=== PATIENT | female | born 1955 | race Caucasian/White ===

== ENCOUNTER 2018-06-28 09:50 | Observation (INO) ==
[2018-06-28] MEDS ORDERED: ONDANSETRON HCL/PF 2 MG/ML VIAL IV ONE ×2 (10:15→11:22)
--- NOTE | 2018-06-28 10:22 | ERNOTE ---
Trauma/Assault HPI - Narrative Date of Service: 06/28/18 - General Stated Complaint: FALL Time Seen by Provider: 06/28/18 10:09 Source: patient, family Exam Limitations: clinical condition - Immun/Allergies/Home Medications Immunizations: IMMUNIZATION HX Immunizations Up to Date No History of Influenza Vaccine No Hx Pneumococcal Vaccination No Allergies/Adverse Reactions: Allergies No Known Allergies Allergy (Unverified 06/24/18 13:10) Home Medications: HOME MEDICATIONS LORazepam [Ativan] 0.5 mg PO BID PRN 06/28/18 [Last Taken Unknown] Levothyroxine Sodium [Levoxyl] 175 mcg PO DAILY 06/28/18 [Last Taken Unknown] RX: Atorvastatin Calcium 10 mg PO DAILY 06/28/18 [Last Taken Unknown] RX: Metoprolol Succinate 50 mg PO DAILY 06/28/18 [Last Taken Unknown] Zolpidem Tartrate [Ambien] 10 mg PO HS PRN 06/28/18 [Last Taken Unknown] - History of Present Illness Narrative: This is a 63-year-old female. Due to the patient's condition history is limited. Nursing staff did speak with the patient's family. Apparently the patient was seen in the ER 3 days ago after falling out of her bed. She sustained a gamekeeper's thumb on the right. She was scheduled to go see orthopedist today. She apparently sustained a ground-level fall from standing. Struck the back of her head. She has been confused since then. The patient's speech is very abnormal. It is my clinical impression that I cannot use the things that the patient is saying to me now to account for the patient's history and physical examination. Review of Systems - Review of Systems Constitutional: Present: other - Patient says she feels completely fine EYE: Present: other - Patient denies any eye problems ENT: Present: other - Patient denies any facial discomfort swelling difficulty swallowing Respiratory: Present: other - Patient denies any shortness of breath or chest pain Cardiology: Present: no symptoms reported. Absent: chest pain Gastrointestinal/Abdominal: Present: nausea, other. Absent: vomiting, diarrhea Genitourinary: Absent: frequency - Patient is having severe nausea but no vomiting, pain, dysuria Musculoskeletal: Absent: no symptoms reported, See HPI, back pain, muscle pain, muscle stiffness, neck pain Skin: Present: no symptoms reported Neurological: Present: no symptoms reported, other - Patient says that she feels like she is thinking a little slower but denies any other problems Endocrine: Present: no symptoms reported Hematologic/Lymphatic: Present: no symptoms reported Psych: Present: no symptoms reported All Other Systems: All systems neg except as marked Medical History (Last Reviewed 06/28/18 @ 12:01 by Nisa Krishnan RN) High blood pressure High cholesterol History of hypothyroidism Surgical History: Surgical History (Last Reviewed 06/28/18 @ 12:01 by Nisa Krishnan RN) Hx of appendectomy Hx of cholecystectomy Hx of hysterectomy Family History: Family History (Last Reviewed 06/28/18 @ 12:01 by Nisa Krishnan RN) Father Colon cancer A-fib Uncle Colon cancer Grandmother [place], acute, non ST segment elevation Social History: Preferred Language Sierra Leonean Do you have any baptist or No cultural preference? Smoking Status Never smoker Alcohol Use none Drug Use none No Social History Section defined Physical Exam - Physical Exam General Appearance: Present: other - Patient is awake alert. Her speech is slow. She is holding her arms out rigidly in front of her. Head Exam: Present: other - Patient has matting of the occipital scalp with blood. There is a 1 cm laceration in the midline of the occipital scalp Eye Exam: Normal inspection: bilateral, PERRL: bilateral, EOMI: bilateral - As best I can determine. Patient does not follow all commands Ears, Nose, Throat: Present: normal ENT inspection, normal pharynx, other Neck: Present: normal inspection, nontender, other - Patient is altered. Will be placed in a cervical collar Respiratory: Present: no respiratory distress, normal breath sounds, lungs clear Cardiovascular/Chest: Present: regular rate, rhythm, no murmur, normal peripheral pulses Gastrointestinal/Abdominal: Present: normal bowel sounds, nontender, nondistended, soft Back Exam: Present: normal inspection, normal range of motion, no CVA tenderness Extremity Exam: Present: normal inspection, other - Patient does have some pain and swelling in her right. Neurological Exam: Present: other - Patient is confused. She is sitting up in bed with her arms out in front of her. She does not know where she has. She does not of the date. She moves all extremities. Her speech is slurred. She has non-fatigable horizontal nystagmus. She is noted to move all extremities Skin Exam: Present: normal color, warm/dry, other - Laceration as described Lymphatic Exam: Present: no adenopathy Detailed Trauma Exam Best Eye Response ([place]): (4) open spontaneously Best Verbal Response ([place]): (4) confused conversation Best Motor Response ([place]): (6) obeys commands [place] Total: 14 Progress - Results and Orders Patient's Lab Results:: I have reviewed the patient's lab results. - Vital Signs Patient's Vital Signs:: I have reviewed the patient's vital signs. Vital Signs: Vital Signs 06/28/18 09:50 Temperature 36.7 C Pulse Rate 75 Respiratory Rate 14 Blood Pressure 147/92 H O2 Sat by Pulse Oximetry 100 - CT/Ultrasound CT/Ultrasound Narrative: CT of the head demonstrates no acute intracranial abnormalities. CT of the cervical spine shows a subtle lucency near the spinous process of C5 felt to be due to a artifact however clinical correlation is advised. Patient has no significant tenderness in this area. - Progress/Reassessment Chief Complaint: Fall Progress:: Unchanged Progress Note-Subjective: 06/28/18 11:17 The patient is still confused. She has a family friend with her. The patient is able to tell me now that she took Ambien last night. She has been taking Ambien every night. The friend says that the patient's boyfriend's ex- mentioned to the friend that she felt the patient might have an issue with Ambien abuse. Regardless, the patient is not going to be able to go home until she is neurol ogically and mentally back to normal. She will need to be placed in observation overnight. I am going very gentle with fluids. Will speak with the hospitalist. Plan - Plan Plan: The patient's symptoms are consistent with that of Ambien impairment. She has not given us a urine sample yet. She has no leukocytosis, fever, or complaints of symptoms, so I do not believe that urinary tract infection/sepsis is likely. I do not feel that the patient needs to have a catheterized specimen performed here in the ER. I am going to admit her to Dr. Moctezuma with plans to observe throughout the day. If she gets back to normal mental state baseline she may be able to go home. The patient's family friend who is in the room says that the patient is acting extremely different than normal. 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 This is not normal for her. The friend who is in the room says that another friend notified this friend, the friend notes in the room, that she felt the patient might have a problem with Ambien abuse. Regardless it is noon or nearing noon and the patient is still clinically impaired from what I have to believe is Ambien toxicity. She will need to be kept. Could this be a concussion? Certainly possible, but again would need to be admitted to the hospital for evaluation. If the patient does not clear mentally within the expected timeframe of approximately 12 hours (or longer for ER form) further consultation or transfer for neurological evaluation may be indicated. I am still awaiting the official report for the cervical spine. I have seen the CT for the cervical spine and discussed with the admitting physician. He agrees with not doing a cath urine at this time. Departure Clinical Impression: Ambien accidental overdose - Departure Disposition: Still a patient Condition: Fair Critical Care Time - Critical Care Critical Time Spent:: No
[2018-06-28 10:50] LABS: Hematocrit 41.1 % (37.0-47.0); Hemoglobin 13.6 gm/dL (12.5-16.0); Mean Cell Volume 94.9 fl (78-100); Mean Corpuscular Hemoglobin 31.4 pg (27-31); Mean Corpuscular Hgb Conc 33.1 g/dl (32-36); Mean Platelet Volume 9.6 fl (8-12.5); Neutrophil # 5.5 K/mm3 (1.3-6.0); Neutrophil % 65.5 % (42-75.0); Platelet Count 222 K/mm3 (150-450); Red Blood Count 4.33 M/mm3 (4.2-5.4); White Blood Count 8.4 K/mm3 (4.0-10.5)
[2018-06-28 11:00] LABS: Albumin * 4.5 gm/dl (3.4-5.0); Anion Gap 15.8 mmol/L (6.8-13.8); BUN/Creatinine Ratio 9.2 (9.0-21.6); Bilirubin, Total 0.3 mg/dL (0.0-1.1); Ca. Corrected For Albumin 9.1 mg/dL (8.4-10.2); Calcium * 9.8 mg/dL (7.9-10.9); Carbon Dioxide 27.3 mmol/L (24-32.6); Potassium 3.1 mmol/L (3.4-4.6); Total Protein 8.3 gm/dL (6.2-8.2)
[2018-06-28] MEDS ORDERED: TETANUS AND DIPHTHERIA TOXOID 0.5 ML SYRG IM ONE (11:57)
[2018-06-28] MEDS ORDERED: DIPHTH,PERTUSS(ACELL),TET VAC 0.5 ML VIAL IM ONE (12:17)
[2018-06-28 13:53] LABS: Urine Bilirubin Negative (NEGATIVE); Urine Blood Negative /ul (NEGATIVE); Urine Ketone Negative (NEGATIVE); Urine Nitrite Negative (NEGATIVE); Urine Protein Negative (NEGATIVE); Urine Urobilinogen Normal (NORMAL); Urine pH 6.5 pH (5.0-7.0)
[2018-06-28 14:01] LABS: Urine Appearance Slightly Cloudy (CLEAR); Urine Bacteria TRACE; Urine Color Yellow; Urine RBC None Seen /hpf (0-5); Urine WBC None Seen /hpf (0-5)
[2018-06-28 14:07] LABS: Cocaine Ur Negative (NEGATIVE); Urine Opiates Negative (NEGATIVE); Urine PCP Negative (NEGATIVE); Urine THC Negative (NEGATIVE)
[2018-06-28 14:08] LABS: Urine Barbiturate Positive (NEGATIVE); Urine Benzodiazepines Positive (NEGATIVE)
[2018-06-28] MEDS: ONDANSETRON HCL/PF 2 MG/ML VIAL IV PRN ×2 (15:04→19:09)
[2018-06-28] MEDS: ACETAMINOPHEN 325 MG TABLET PO PRN ×2 (15:05→21:09)
--- NOTE | 2018-06-28 16:13 | HP ---
Chief Complaint - Chief Complaint Date of Service: 06/28/18 Time of Service: 16:13 Chief Complaint: Altered, intoxicated History of Present Illness: 63-year-old female presented to the ER this morning after falling out of her bed. She had a similar incident earlier in the week where she fell out of the bed and broke her right thumb. Today she presented to the ER intoxicated and altered. CT scan of her head in the ER was negative for a bleed. She admitted to taking ambien to help her sleep. Her tox screen was also positive for benzodiazepine and barbiturates. She was A&O x2, slurring her words. She was placed under observation to be monitored until the medications were out of her system. She came to the floor in hard c-collar due to possible cervical spinal fracture at C5. This could not be ruled out while intoxicated. Her vitals were stable and her labs were in an appropriate range aside from a mildly low potassium. Her vitals were also stable. Medical History (Last Reviewed 06/28/18 @ 12:01 by Nisa Krishnan RN) High blood pressure High cholesterol History of hypothyroidism Surgical History: Surgical History (Last Reviewed 06/28/18 @ 12:01 by Nisa Krishnan RN) Hx of appendectomy Hx of cholecystectomy Hx of hysterectomy Family History: Family History (Last Reviewed 06/28/18 @ 12:01 by Nisa Krishnan RN) Father Colon cancer A-fib Uncle Colon cancer Grandmother [place], acute, non ST segment elevation Social History: Patient Lives/Resources Home Utilized Preferred Language Bengali Do you have any zoroastrianism or No cultural preference? Smoking Status Unknown if ever smoked Have you smoked in the past 12 No months Alcohol Use none Drug Use none No Social History Section defined Review Of Systems (GEN) - Review of Systems Additional Comments: unable to obtain at time of admission due to being altered Immunizations: IMMUNIZATION HX Immunizations Up to Date No History of Influenza Vaccine No Hx Pneumococcal Vaccination No Allergies/Adverse Reactions: Allergies Allergy/AdvReac Type Severity Reaction Status Date / Time No Known Allergies Allergy Unverified 06/24/18 13:10 Home Medications: HOME MEDICATIONS Atorvastatin Calcium 10 mg PO DAILY 06/28/18 [Last Taken Unknown] LORazepam [Ativan] 0.5 mg PO BID PRN 06/28/18 [Last Taken Unknown] Levothyroxine Sodium [Levoxyl] 175 mcg PO DAILY 06/28/18 [Last Taken Unknown] Metoprolol Succinate 50 mg PO DAILY 06/28/18 [Last Taken Unknown] Zolpidem Tartrate [Ambien] 10 mg PO HS PRN 06/28/18 [Last Taken Unknown] Exam - Exam Vital Signs: Vital Signs - Last Taken Temp 36.0 C 06/28/18 12:35 Pulse 84 06/28/18 13:40 Resp 16 06/28/18 13:40 BP 137/78 06/28/18 13:40 Pulse Ox 98 06/28/18 13:40 Constitutional: Present: Elderly, Thin and frail Eye Exam: bilateral eye: abnormal pupil - dialated Neck: Present: other - c collar in place Respiratory: Present: lungs clear, normal breath sounds Cardiovascular/Chest: Present: regular rate, rhythm. Absent: no edema, no murmur Skin Exam: Present: normal color, warm/dry Eye contact: Absent: normal speech Thoughts: Present: incoherent Diagnostic Studies: Abnormal Lab Results 06/28/18 06/28/18 06/28/18 Range/Units 10:40 10:40 13:25 MCH 31.4 H (27-31) pg Potassium 3.1 L (3.4-4.6) mmol/L Anion Gap 15.8 H (6.8-13.8) mmol/L Est GFR (Non-Af Amer) 54 L (60-130) mL/min Random Glucose 118 H (70-110) mg/dL Total Protein 8.3 H (6.2-8.2) gm/dL Barbiturate Screen Positive H (NEGATIVE) U Benzodiazepines Scrn Positive H (NEGATIVE) Laboratory Results WBC 8.4 K/mm3 (4.0-10.5) 06/28/18 10:40 RBC 4.33 M/mm3 (4.2-5.4) 06/28/18 10:40 Hgb 13.6 gm/dL (12.5-16.0) 06/28/18 10:40 Hct 41.1 % (37.0-47.0) 06/28/18 10:40 MCV 94.9 fl (78-100) 06/28/18 10:40 MCH 31.4 pg (27-31) H 06/28/18 10:40 MCHC 33.1 g/dl (32-36) 06/28/18 10:40 RDW 13.0 % (11.5-14.0) 06/28/18 10:40 Plt Count 222 K/mm3 (150-450) 06/28/18 10:40 MPV 9.6 fl (8-12.5) 06/28/18 10:40 Immature Gran % (Auto) 0.20 % (0.001-0.429) 06/28/18 10:40 Immature Gran # (Auto) 0.02 K/mm3 (0.000-0.0310) 06/28/18 10:40 Neutrophils % 65.5 % (42-75.0) 06/28/18 10:40 Lymphocytes % 26.7 % (20-51) 06/28/18 10:40 Monocytes % 5.7 % (0.0-9) 06/28/18 10:40 Eosinophils % 1.3 % (0.0-3.0) 06/28/18 10:40 Basophils % 0.6 % (0.0-1.0) 06/28/18 10:40 Nucleated RBC % 0.0 k/mm3 (0-1) 06/28/18 10:40 Neutrophils # 5.5 K/mm3 (1.3-6.0) 06/28/18 10:40 Lymphocytes # 2.25 k/mm3 (1.5-3.5) 06/28/18 10:40 Monocytes # 0.5 k/mm3 (0.0-1.0) 06/28/18 10:40 Eosinophils # 0.1 k/mm3 (0.0-0.7) 06/28/18 10:40 Absolute Basophils 0.1 k/mm3 (0.0-0.1) 06/28/18 10:40 Sodium 139 mmol/L (132-142) 06/28/18 10:40 Plasma Sodium 139 mmol/L (130-142) 06/28/18 10:40 Potassium 3.1 mmol/L (3.4-4.6) L 06/28/18 10:40 Chloride 99 mmol/L (97-106) 06/28/18 10:40 Carbon Dioxide 27.3 mmol/L (24-32.6) 06/28/18 10:40 Anion Gap 15.8 mmol/L (6.8-13.8) H 06/28/18 10:40 BUN 10 mg/dL (3-23) 06/28/18 10:40 Creatinine 1.09 mg/dL (0.4-1.4) 06/28/18 10:40 Est GFR (Non-Af Amer) 54 mL/min (60-130) L 06/28/18 10:40 BUN/Creatinine Ratio 9.2 (9.0-21.6) 06/28/18 10:40 Random Glucose 118 mg/dL (70-110) H 06/28/18 10:40 Calcium 9.8 mg/dL (7.9-10.9) 06/28/18 10:40 Calcium Adj for Albumin 9.1 mg/dL (8.4-10.2) 06/28/18 10:40 Total Bilirubin 0.3 mg/dL (0.0-1.1) 06/28/18 10:40 AST 21 U/L (0-48) 06/28/18 10:40 ALT 22 U/L (19-67) 06/28/18 10:40 Alkaline Phosphatase 102 U/L (50-170) 06/28/18 10:40 Total Protein 8.3 gm/dL (6.2-8.2) H 06/28/18 10:40 Albumin 4.5 gm/dl (3.4-5.0) 06/28/18 10:40 Urine Color Yellow 06/28/18 13:25 Urine Appearance Slightly cloudy (CLEAR) 06/28/18 13:25 Urine pH 6.5 pH (5.0-7.0) 06/28/18 13:25 Ur Specific [place] 1.020 SP.GR. (1.005-1.010) 06/28/18 13:25 Urine Protein Negative mg/dL (NEGATIVE) 06/28/18 13:25 Urine Glucose (UA) Negative mg/dL (NEGATIVE) 06/28/18 13:25 Urine Ketones Negative mg/dL (NEGATIVE) 06/28/18 13:25 Urine Blood Negative /ul (NEGATIVE) 06/28/18 13:25 Urine Nitrate Negative (NEGATIVE) 06/28/18 13:25 Urine Bilirubin Negative mg/dl (NEGATIVE) 06/28/18 13:25 Urine Urobilinogen Normal EU/dl (NORMAL) 06/28/18 13:25 Ur Leukocyte Esterase Negative /ul (NEGATIVE) 06/28/18 13:25 Urine RBC None seen /hpf (0-5) 06/28/18 13:25 Urine WBC None seen /hpf (0-5) 06/28/18 13:25 Ur Epithelial Cells 0-5 /hpf (0-5) 06/28/18 13:25 Urine Bacteria Trace (NONE) 06/28/18 13:25 Urine Culture Comments No culture indicated 06/28/18 13:25 Urine Opiates Screen Negative (NEGATIVE) 06/28/18 13:25 Barbiturate Screen Positive (NEGATIVE) H 06/28/18 13:25 Ur Phencyclidine Scrn Negative (NEGATIVE) 06/28/18 13:25 Urine Amphetamine Negative (NEGATIVE) 06/28/18 13:25 U Benzodiazepines Scrn Positive (NEGATIVE) H 06/28/18 13:25 Urine Cocaine Screen Negative (NEGATIVE) 06/28/18 13:25 Urine Marijuana (THC) Negative (NEGATIVE) 06/28/18 13:25 Assessment/Plan - Procedures Results: Patient clearly intoxicated during this interview. She is unable to answer questions appropriately. She is still wearing a c-collar due to possible C- spine fracture, waiting for read from CT scan. Admits to taking Ambien, lorazepam, and Fioricet the night before. We will keep her here under observation until medications are out of her system and she is able to think and act appropriately. Vitals are stable. Will monitor, nurse to notify me of any adverse events. - Assessment/Plan (1) Ambien accidental overdose Problem: Acute (2) Adverse effect of barbiturates Problem: Acute (3) Benzodiazepine causing adverse effect in therapeutic use Problem: Acute
[2018-06-28] MEDS ORDERED: METOPROLOL SUCCINATE 50 MG TABLET.SA PO SCH (19:45)
[2018-06-28] MEDS ORDERED: PROMETHAZINE HCL 25 MG SUPP.RECT RC ONE (21:21)
[2018-06-29] MEDS: ONDANSETRON 4 MG TAB.RAPDIS PO PRN ×3 (01:26→13:16)
[2018-06-29] MEDS ORDERED: LEVOTHYROXINE SODIUM 175 MCG TABLET PO SCH (07:00)
[2018-06-29] MEDS ORDERED: ROSUVASTATIN CALCIUM 10 MG TABLET PO SCH ×2 (09:00→21:00)
[2018-06-29] MEDS ORDERED: METOPROLOL SUCCINATE 50 MG TABLET.SA PO SCH (09:00)
[2018-06-29] MEDS ORDERED: POTASSIUM CHLORIDE 20 MEQ TABLET.SA PO SCH (10:00)
--- NOTE | 2018-06-29 13:03 | DS ---
(1) Ambien accidental overdose Problem: Acute (2) Adverse effect of barbiturates Problem: Acute (3) Benzodiazepine causing adverse effect in therapeutic use Problem: Acute Description of Stay: 63-year-old female presented to the ER with altered mental status and fall from bed. Patient states that she had taken Ambien, lorazepam, and Fioricet prior to going to sleep the night before. She was brought in due to altered mental status and intoxication. Urine tox screen showed positive for benzos as well as barbiturates. CT scan of her head showed no acute processes taking place, CT scan of her neck showed possible spinous process fracture at C5. Patient was initially in a c-collar until her intoxication wore off to where she was able to have a neurological exam performed, she had minimal neck pain and full range of motion on exam. She had no neurological symptoms with the examination. C-collar was removed and patient was kept overnight. I discussed in detail with patient that she should not take these medications anymore as they have led to 2 falls in the last week. I explained the danger of taking these medications including intoxication, increased sedation, respiratory depression, and possible injury from fall/trauma. Patient stated understanding, claimed that she does not want to feel like this anymore or be here in the hospital for injuries that she may sustained from being intoxicated. Patient was discharged home in stable condition, Zofran was given to her to help with some nausea that she was having from the residual effects of the medication. Her Ambien and lorazepam were discontinued by me and again the patient was strongly cautioned to get rid of the medication she had at home. She is to follow-up with her PCP in the next 3-5 days which she agrees to do. Patient's only abnormality seen in her blood work showed her to be slightly hypokalemic. Advised that she start [id number] potassium and discuss this with her PCP at her next visit. Procedures Performed: none Results and Findings: Pending Mircobiology Results 06/28/18 12:12 Blood Blood Culture - Preliminary NO GROWTH 24 HOURS 06/28/18 10:40 Blood Blood Culture - Preliminary NO GROWTH 24 HOURS Lab Pending Results 06/28/18 10:40: WBC 8.4, RBC 4.33, Hgb 13.6, Hct 41.1, MCV 94.9, MCH 31.4 H, MCHC 33.1, RDW 13.0, Plt Count 222, MPV 9.6, Immature Gran % (Auto) 0.20, Immature Gran # (Auto) 0.02, Neutrophils % 65.5, Lymphocytes % 26.7, Monocytes % 5.7, Eosinophils % 1.3, Basophils % 0.6, Nucleated RBC % 0.0, Neutrophils # 5.5, Lymphocytes # 2.25, Monocytes # 0.5, Eosinophils # 0.1, Absolute Basophils 0.1 06/28/18 10:40: Sodium 139, Plasma Sodium 139, Potassium 3.1 L, Chloride 99, Carbon Dioxide 27.3, Anion Gap 15.8 H, BUN 10, Creatinine 1.09, Est GFR (Non-Af Amer) 54 L, BUN/Creatinine Ratio 9.2, Random Glucose 118 H, Calcium 9.8, Calcium Adj for Albumin 9.1, Total Bilirubin 0.3, AST 21, ALT 22, Alkaline Phosphatase 102, Total Protein 8.3 H, Albumin 4.5 06/28/18 13:25: Urine Color Yellow, Urine Appearance Slightly cloudy, Urine pH 6.5, Ur Specific [place] 1.020, Urine Protein Negative, Urine Glucose (UA) Negative, Urine Ketones Negative, Urine Blood Negative, Urine Nitrate Negative, Urine Bilirubin Negative, Urine Urobilinogen Normal, Ur Leukocyte Esterase Negative, Urine RBC None seen, Urine WBC None seen, Ur Epithelial Cells 0-5, Urine Bacteria Trace, Urine Culture Comments No culture indicated 06/28/18 13:25: Urine Opiates Screen Negative, Barbiturate Screen Positive H, Ur Phencyclidine Scrn Negative, Urine Amphetamine Negative, U Benzodiazepines Scrn Positive H, Urine Cocaine Screen Negative, Urine Marijuana (THC) Negative Disposition: Home self-care Condition: Fair Discharge Activity: Activity as tolerated Discharge Diet: General/regular food Additional Patient Instructions (free text): Follow-up with PCP in 3 days. Call the clinic with any questions or concerns. Prescriptions (Any new or edited meds): Ondansetron HCl [Zofran] 4 mg PO TID #15 tab Complete Home Medications List: Complete Home Medication List: Atorvastatin Calcium 10 mg PO DAILY 06/28/18 Levothyroxine Sodium [Levoxyl] 175 mcg PO DAILY 06/28/18 Metoprolol Succinate 50 mg PO DAILY 06/28/18 Ondansetron HCl [Zofran] 4 mg PO TID #15 tab 06/29/18
[2018-06-29 15:49] VITALS: BP 135/74
== END 2018-06-29 17:15 | disposition home or self-care (01) ==
LOC: SCU 09:50 → ER 09:50 → SCU 12:35
PROVIDERS: ADMIT Family Medicine; ATTEND Family Medicine
CPT/HCPCS: 36415; 70450; 71010; 71045; 72125; 80053; 80307; 81001; 85025; 87040; 90471; 90686; 90715; 96374; 96375; 99285; G0008; G0378; J2405